=== PATIENT | female | born 1945 | race Caucasian/White ===

== ENCOUNTER 2016-10-04 14:35 | Emergency (ER) | payer OTHER, MEDICARE ==
--- NOTE | 2016-10-04 14:37 | PDOC ---
[id number] is a 71 year old female, with a significant past medical history of diverticulitis, who presents to the emergency department sent by PCP for worsening abdominal cramping, bloating, right flank pain, and nausea for 11 days. She reports the abdominal cramps began as intermittent, but has been constant for the past 24 hours. She reports the abdominal pain now radiates from her right groin to her right flank. She states she is currently nauseous, but denies vomiting despite a couple of attempts to do so. She denies chest pain, shortness of breath, headache and dizziness. She denies fever, chills, vomit, diarrhea and constipation. She denies dysuria, frequency, urgency and hematuria. Allergies: NKDA PCP - Dr. Ellington <Floridalma Cotter - Last Filed: 10/04/16 15:57> <Hansa Reese - Last Filed: 10/04/16 16:54> - General Chief Complaint: Pain, Acute Stated Complaint: ABD PAIN Time Seen by Provider: 10/04/16 14:36 Past History <Floridalma Cotter - Last Filed: 10/04/16 15:57> <Hansa Reese - Last Filed: 10/04/16 16:54> - Past Medical History Allergies/Adverse Reactions: Allergies Allergy/AdvReac Type Severity Reaction Status Date / Time No Known Allergies Allergy Verified 10/04/16 14:36 Home Medications: Ambulatory Orders Bimatoprost [Lumigan] 1 drop IO DAILY 10/04/16 Ondansetron [Zofran Odt -] 4 mg SL TID PRN #21 od.tablet 10/04/16 Review of Systems - Review of Systems Able to Perform ROS?: Yes Comments:: 10/04/16 15:07 GENERAL/CONSTITUTIONAL: (+) subjective fever. No chills. No weakness. HEAD, EYES, EARS, NOSE AND THROAT: No change in vision. No ear pain or discharge. No sore throat. CARDIOVASCULAR: No chest pain or shortness of breath. RESPIRATORY: No cough, wheezing, or hemoptysis. GASTROINTESTINAL: (+) nausea and abdominal cramping/nloating. No vomiting, diarrhea or constipation. GENITOURINARY: (+) right flank pain. No dysuria, frequency, or change in urination. MUSCULOSKELETAL: No joint or muscle swelling or pain. No neck or back pain. SKIN: No rash NEUROLOGIC: No headache, vertigo, loss of consciousness, or change in strength/ sensation. ENDOCRINE: No increased thirst. No abnormal weight change. HEMATOLOGIC/LYMPHATIC: No anemia, easy bleeding, or history of blood clots. ALLERGIC/IMMUNOLOGIC: No hives or skin allergy. <Floridalma Cotter - Last Filed: 10/04/16 15:57> *Physical Exam - Vital Signs Last Vital Signs Temp Pulse Resp BP Pulse Ox 97.7 F 76 16 132/58 100 10/04/16 14:36 10/04/16 14:36 10/04/16 14:36 10/04/16 14:36 10/04/16 14:36 - Physical Exam Comments: 10/04/16 15:08 GENERAL: Awake, alert, and fully oriented, in no acute distress HEAD: No signs of trauma EYES: PERRLA, EOMI, sclera anicteric, conjunctiva clear ENT: (+) Dry mucosa. Auricles normal inspection, hearing grossly normal, nares patent, oropharynx clear without exudates. NECK: Normal ROM, supple, no lymphadenopathy, JVD, or masses LUNGS: Breath sounds equal, clear to auscultation bilaterally. No wheezes, and no crackles HEART: Regular rate and rhythm, normal S1 and S2, no murmurs, rubs or gallops ABDOMEN: Soft, nontender, normoactive bowel sounds. No guarding, no rebound. No masses MUSCULOSKELETAL (+) Right CVA tenderness. Normal range of motion at all joints. No bony deformities or tenderness. EXTREMITIES: Normal range of motion, no edema. No clubbing or cyanosis. No cords, erythema, or tenderness NEUROLOGICAL: Cranial nerves II through XII grossly intact. Normal speech, normal gait SKIN: Warm, Dry, normal turgor, no rashes or lesions noted. <Floridalma Cotter - Last Filed: 10/04/16 15:57> ED Treatment Course - LABORATORY CBC & Chemistry Diagram: 10/04/16 14:58 10/04/16 14:58 - RADIOLOGY Radiograph Interpretation: 10/04/16 15:42 CT spiral was read by Dr. Dyer at 15:39 Impression: Moderate right hydronephrosis without evidence of obstructing calculus. <Floridalma Cotter - Last Filed: 10/04/16 15:57> - LABORATORY CBC & Chemistry Diagram: 10/04/16 14:58 10/04/16 14:58 <Hansa Reese - Last Filed: 10/04/16 16:54> Medical Decision Making - Medical Decision Making 10/04/16 15:57 Dr. Ellington called the ER for a doctor to doctor consult regarding his patient and the patient's case was discussed. <Floridalma Cotter - Last Filed: 10/04/16 15:57> - Medical Decision Making Results reviewed both with patient and with her GI physician Dr. Jolly. CT shows gallstones (known, as per GI) and R hydronephrosis. Given the episode of severe pain last night that suddenly stopped, I suspect she had a kidney stone which she may have passed. She is comfortable at present, but has R CVAT and mild nausea. She improved with zofran and small dose of toradol. Recommended NSAIDs as needed outpatient for pain, zofran prn nausea. Stable for DC home. <Hansa Reese - Last Filed: 10/04/16 16:54> *DC/Admit/Observation/Transfer - Attestations Scribe Attestion: 10/04/16 15:10 Documentation prepared by Floridalma Cotter, acting as medical equipment repair technician for Hansa Reese MD, MD <Floridalma Cotter - Last Filed: 10/04/16 15:57> - Discharge Dispostion Admit: No <Hansa Reese - Last Filed: 10/04/16 16:54> Diagnosis at time of Disposition: Abdominal pain Qualifiers: Abdominal location: unspecified location Qualified Code(s): R10.9 - Unspecified abdominal pain - Discharge Dispostion Disposition: HOME Condition at time of disposition: Stable - Prescriptions Prescriptions: Ondansetron [Zofran Odt -] 4 mg SL TID PRN #21 od.tablet PRN Reason: Nausea And/Or Vomiting - Patient Instructions Printed Discharge Instructions: DI for Abdominal Pain-Adult
[2016-10-04 14:42] VITALS: BP 132/58; PULSE 76; TEMP 97.7; BMI 16.9
[2016-10-04] MEDS ORDERED: KETOROLAC TROMETHAMINE 15 MG/ML VIAL IVPUSH ONE (14:46)
[2016-10-04] MEDS ORDERED: SODIUM CHLORIDE 1,000 ML IV STA (14:46)
[2016-10-04] MEDS ORDERED: ONDANSETRON 4 MG/2 ML VIAL IVPUSH ONE (14:46)
[2016-10-04] MEDS ORDERED: KETOROLAC TROMETHAMINE 30 MG/1 ML VIAL ONE (15:00)
[2016-10-04] MEDS ORDERED: ONDANSETRON 4 MG/2 ML VIAL ONE (15:01)
[2016-10-04 15:07] LABS: PH,URINE 5.5 (4.5-8); URINE APPEARANCE Cloudy; URINE BILIRUBIN 1+ (NEGATIVE); URINE COLOR YELLOW; URINE GLUCOSE (UA) Negative (NEGATIVE); URINE KETONE 2+ (NEGATIVE); URINE NITRITE Negative (NEGATIVE); URINE PROTEIN Negative (NEGATIVE); URINE UROBILINOGEN 0.2 E.U/dl (0.2-1.0)
[2016-10-04 15:09] LABS: URINE BLOOD 1+ (NEGATIVE)
[2016-10-04 15:09] LABS: MCH 29.6 pg (25.7-33.7); MCHC 32.8 g/dl (32.0-36.0); MEAN CELL VOLUME 90.3 fl (80-96); MEAN PLT VOLUME 7.7 fl (7.5-11.1); PLATELET COUNT 342 K/MM3 (134-434); RDW 12.4 % (11.6-15.6); WHITE BLOOD COUNT 12.6 K/mm3 (4.0-10.0)
[2016-10-04 15:10] LABS: URINE LEUK ESTERASE Negative (NEGATIVE)
[2016-10-04 15:46] LABS: ALBUMIN 3.7 g/dl (3.5-5.0); ALK PHOS 55 U/L (32-92); ANION GAP 10 (8-16); BILIRUBIN,TOTAL 1.5 mg/dl (0.2-1.0); CALCIUM 9.3 mg/dl (8.4-10.2); CO2 25 mmol/L (22-28); CREATININE 0.8 mg/dl (0.6-1.3); GLUCOSE,RANDOM 105 mg/dl (74-106); SGOT/AST 25 U/L (10-42); SGPT/ALT 19 U/L (10-40); TOT PROT 6.3 g/dl (6.4-8.3)
== END 2016-10-04 16:05 | disposition home or self-care (01) ==
LOC: FER 14:35
PROC: 3E0333Z Introduction of Anti-inflammatory into Peripheral Vein, Percutaneous Approach (ICD-10-PCS; principal; 2016-10-04)
PROC: 3E033GC Introduction of Other Therapeutic Substance into Peripheral Vein, Percutaneous Approach (ICD-10-PCS; 2016-10-04)
PROC: 3E0337Z Introduction of Electrolytic and Water Balance Substance into Peripheral Vein, Percutaneous Approach (ICD-10-PCS; 2016-10-04)
DX: R10.9 Unspecified abdominal pain (principal); K57.90 Diverticulosis of intestine, part unspecified, without perforation or abscess without bleeding
CPT/HCPCS: 36415; 74176; 80053; 81003; 85025; 96361; 96374; 96375; 99283-25